=== PATIENT | female | born 1975 | race African-American/Black ===

== ENCOUNTER 2017-09-23 16:05 | Emergency (ER) | payer MEDICAID ==
[~2017-09-23] VITALS: Ht 180.3 cm; Wt 142.9 kg
[2017-09-23 16:26] VITALS: BP 149/86
[2017-09-23] MEDS ORDERED: IBUPROFEN 600 MG TAB PO ONE (19:45)
[2017-09-23] MEDS ORDERED: BACLOFEN 10 MG TAB PO ONE (19:45)
== END 2017-09-23 20:28 | disposition home or self-care (01) ==
LOC: ER 16:05
DX: S86.911A Strain of unspecified muscle(s) and tendon(s) at lower leg level, right leg, initial encounter (principal); X58.XXXA Exposure to other specified factors, initial encounter; Y93.89 Activity, other specified; Y92.89 Other specified places as the place of occurrence of the external cause; Y99.8 Other external cause status
CPT/HCPCS: 93971

== ENCOUNTER 2020-01-13 11:38 | Emergency (ER) | payer MEDICAID ==
[~2020-01-13] VITALS: Ht 152.4 cm; Wt 127.0 kg
[2020-01-13 12:41] VITALS: BP 136/82
== END 2020-01-13 12:44 | disposition home or self-care (01) ==
LOC: ER 11:38
DX: H60.92 Unspecified otitis externa, left ear (principal); I10 Essential (primary) hypertension; Z90.49 Acquired absence of other specified parts of digestive tract

== ENCOUNTER 2020-03-07 18:52 | Emergency (ER) | payer MEDICAID, OTHER ==
[~2020-03-07] VITALS: Ht 177.8 cm; Wt 113.4 kg
[2020-03-07 21:19] VITALS: BP 121/71
[2020-03-07] MEDS ORDERED: KETOROLAC TROMETH 60MG/2ML VIAL IM ONE (21:45)
== END 2020-03-07 22:16 | disposition home or self-care (01) ==
LOC: ER 18:52
DX: M54.41 Lumbago with sciatica, right side (principal); M54.16 Radiculopathy, lumbar region
CPT/HCPCS: 96372; 99283; J1885

== ENCOUNTER 2021-12-18 07:42 | Emergency (ER) | payer OTHER ==
[~2021-12-18] VITALS: Ht 177.8 cm; Wt 154.2 kg
[2021-12-18 08:10] VITALS: BP 121/79
[2021-12-18] MEDS ORDERED: KETOROLAC TROMETH 60MG/2ML VIAL IM ONE (08:15)
[2021-12-18] MEDS ORDERED: ONDANSETRON ODT 4 MG TAB PO ONE (08:15)
[2021-12-18 09:01] LABS: Urine Bacteria NONE SEEN /hpf (None Seen); Urine Blood 1+ /uL (Negative); Urine Specific Gravity 1.028 (1.001-1.035); Urine WBC 1 /hpf (0 - 5)
[2021-12-18] MEDS ORDERED: CYCL-837 PO (09:41)
[2021-12-18] MEDS ORDERED: IBUP800T27 PO (09:41)
[2021-12-18] MEDS ORDERED: ONDA-144 PO (09:41)
== END 2021-12-18 09:59 | disposition home or self-care (01) ==
LOC: ER 07:42
DX: S39.012A Strain of muscle, fascia and tendon of lower back, initial encounter (principal); I10 Essential (primary) hypertension; Z90.49 Acquired absence of other specified parts of digestive tract; Z79.1 Long term (current) use of non-steroidal anti-inflammatories (NSAID); Z79.899 Other long term (current) drug therapy; X58.XXXA Exposure to other specified factors, initial encounter; Y93.89 Activity, other specified; Y92.89 Other specified places as the place of occurrence of the external cause; Y99.8 Other external cause status
CPT/HCPCS: 72100; 81001; 96372; 99284; J1885; Q0162

== ENCOUNTER → 2022-06-02 | Emergency (ER) | payer MEDICAID, OTHER ==
[~2022-06-02] VITALS: Ht 177.8 cm; Wt 136.0 kg
[~2022-06-02] MED LIST: CYCL-837 PO; IBUP800T27 PO; ONDA-144 PO
[2022-06-02 20:37] VITALS: BP 141/71
== END | disposition left against medical advice (07) ==
LOC: ER 20:37
DX: M79.604 Pain in right leg (principal); M25.561 Pain in right knee; Z53.21 Procedure and treatment not carried out due to patient leaving prior to being seen by health care provider
CPT/HCPCS: 73562

== ENCOUNTER 2022-06-23 18:21 | Emergency (ER) | payer MEDICAID ==
[~2022-06-23] VITALS: Ht 177.8 cm; Wt 141.7 kg
[2022-06-23 18:40] VITALS: BP 143/68
[2022-06-23] MEDS ORDERED: AMOX500C2 PO (20:53)
[2022-06-23] MEDS ORDERED: LOPE-20 PO (21:50)
== END 2022-06-23 22:07 | disposition home or self-care (01) ==
LOC: ER 18:22
DX: H66.91 Otitis media, unspecified, right ear (principal); J02.0 Streptococcal pharyngitis; R19.7 Diarrhea, unspecified; Z20.822 Contact with and (suspected) exposure to COVID-19
CPT/HCPCS: 36415; 87070; 87880

== ENCOUNTER 2023-11-09 07:05 | Emergency (ER) | payer MEDICAID, OTHER ==
[~2023-11-09] VITALS: Ht 177.8 cm; Wt 150.5 kg
[~2023-11-09 07:05] MED LIST changes: +AMOX500C2 PO; +IBUP-1456 PO; -IBUP800T27 PO; +LOPE-20 PO
[2023-11-09 07:24] VITALS: BP 152/85; PULSE 75; RESP 18; O2SAT 98
[2023-11-09 07:44] LABS: Urine Bacteria FEW /hpf (None Seen); Urine Blood 1+ /uL (Negative); Urine Clarity Clear (Clear); Urine Color Yellow (Yellow); Urine Mucus FEW (None Seen); Urine Protein, UAD TRACE (Negative); Urine Specific Gravity 1.027 (1.001-1.035); Urine WBC 1 /hpf (0 - 5); Urine pH 5.5 (5.0-8.0)
[2023-11-09] MEDS ORDERED: PRED20TA2 PO (08:30)
[2023-11-09] MEDS ORDERED: CYCL-839 PO (08:30)
[2023-11-09] MEDS ORDERED: HYDR-4902 PO (08:31)
[2023-11-09] MEDS: KETOROLAC TROMETH 30 MG/ML 1ML VIAL IM ONE (08:55)
[2023-11-09] MEDS: DexAMETHasone SOD PHOS 10MG/1ML VIAL INJ IM ONE (08:55)
== END 2023-11-09 09:05 | disposition home or self-care (01) ==
LOC: ER 07:05
DX: M54.16 Radiculopathy, lumbar region (principal); M43.16 Spondylolisthesis, lumbar region; M41.86 Other forms of scoliosis, lumbar region; I10 Essential (primary) hypertension; Z90.49 Acquired absence of other specified parts of digestive tract; Z79.1 Long term (current) use of non-steroidal anti-inflammatories (NSAID); Z79.899 Other long term (current) drug therapy; Z91.013 Allergy to seafood
CPT/HCPCS: 72100; 81001; 96372; 99284; J1100; J1885

== ENCOUNTER 2024-01-13 04:26 | Emergency (ER) | payer MEDICAID ==
[~2024-01-13] VITALS: Ht 177.8 cm; Wt 147.0 kg
[~2024-01-13 04:26] MED LIST changes: +CYCL-839 PO; +HYDR-4902 PO; +PRED20TA2 PO
[2024-01-13 04:52] LABS: Basophils # (auto) 0 10 ^3/uL (0-0.2); Basophils % (auto) 1.1 % (0.0-2.0); Eosinophils # (auto) 0.2 10 ^3/uL (0-0.8); Eosinophils % (auto) 4.4 % (0.0-7.0); Hematocrit 39.4 % (36.0-46.0); Hemoglobin 12.8 g/dL (12.2-16.2); Lymphocytes # (auto) 1.6 10 ^3/uL (0.4-5.4); Mean Corpuscular Hemoglobin 28.1 pg (28.0-32.0); Mean Corpuscular Hgb Conc. 32.5 g/dL (32.0-36.0); Mean Corpuscular Volume 86.6 fL (80.0-100.0); Monocytes # (auto) 0.3 10 ^3/uL (0-1.3); Monocytes % (auto) 6.7 % (0.0-12.0); Neutrophils # (auto) 1.9 10 ^3/uL (1.6-8.6); Neutrophils % (auto) 46.8 % (37.0-80.0); Nucleated Red Blood Cells % 0.2 %; Red Blood Cells 4.54 10^6/uL (4.0-5.20); Red Cell Distribution Width 14.9 % (11.8-14.3)
[2024-01-13 05:09] LABS: Alanine Aminotransferase 28 U/L (7-40); Albumin 4.3 g/dL (3.2-4.8); Alkaline Phosphatase 98 U/L (46-116); Anion Gap 9 (5-15); Aspartate Aminotransferase 27 U/L (13-40); BUN/Creatinine Ratio 6.5 (10.0-20.0); Blood Urea Nitrogen 6 mg/dL (9-23); Calcium 9.3 mg/dL (8.7-10.4); Carbon Dioxide 24 mmol/L (20-30); Chloride 103 mmol/L (98-107); Glucose 105 mg/dL (74-106); Potassium 3.3 mmol/L (3.5-5.1); Sodium 136 mmol/L (136-145)
[2024-01-13 05:10] LABS: Bilirubin, Total 0.6 mg/dL (0.2-1.0); Total Protein 7.1 g/dL (5.7-8.2)
[2024-01-13] MEDS ORDERED: DICL50TA2 PO (07:18)
[2024-01-13] MEDS ORDERED: ATEN-60 PO (07:18)
[2024-01-13 07:57] VITALS: PULSE 80
[2024-01-13] MEDS: KETOROLAC TROMETH 60MG/2ML VIAL IM ONE (07:57)
[2024-01-13] MEDS: POTASSIUM EFFERVESENT TAB 25 MEQ PO ONE (07:57)
[2024-01-13 08:07] VITALS: BP 140/94; PULSE 74; RESP 14; TEMP 98.8; O2SAT 99
== END 2024-01-13 08:31 | disposition home or self-care (01) ==
LOC: ER 04:26
DX: R07.89 Other chest pain (principal); I10 Essential (primary) hypertension; K21.9 Gastro-esophageal reflux disease without esophagitis; E66.01 Morbid (severe) obesity due to excess calories; Z91.013 Allergy to seafood; Z91.014 Allergy to mammalian meats; Z68.42 Body mass index [BMI] 45.0-49.9, adult
CPT/HCPCS: 36415; 71045; 80053; 84484; 85025; 93005; 96372; 99285; J1885

== ENCOUNTER 2025-04-19 14:35 | Emergency (ER) | payer MEDICAID, OTHER ==
[~2025-04-19] VITALS: Ht 172.7 cm; Wt 150.0 kg
[~2025-04-19 14:35] MED LIST changes: +ATEN-60 PO; +DICL50TA2 PO
[2025-04-19 15:42] LABS: Hematocrit 40.8 % (36.0-46.0); Hemoglobin 13.8 g/dL (12.2-16.2); Mean Corpuscular Hemoglobin 28.9 pg (28.0-32.0); Mean Corpuscular Volume 85.6 fL (80.0-100.0); Nucleated Red Blood Cells % 0.1 %
[2025-04-19 15:51] LABS: Potassium 4.3 mmol/L (3.5-5.1)
[2025-04-19 15:52] LABS: Anion Gap 9 (5-15); Carbon Dioxide 30 mmol/L (20-31)
[2025-04-19 15:53] LABS: Calcium 9.0 mg/dL (8.7-10.4)
[2025-04-19 15:57] LABS: BUN/Creatinine Ratio 12.9 (10.0-20.0); Blood Urea Nitrogen 13 mg/dL (9-23); Chloride 107 mmol/L (98-107); Glucose 96 mg/dL (74-106); Sodium 146 mmol/L (136-145)
[2025-04-19] MEDS: HYDROcodone-ACET 5/325MG TAB PO ONE (16:43)
[2025-04-19] MEDS: KETOROLAC TROMETH 60MG/2ML VIAL IM ONE (16:44)
--- NOTE | 2025-04-19 16:45 | ED.PDOC ---
Back pain HPI HPI Comments 49-year-old female presents to the ER with a prior MHx of colonic back pain and a chief complaint of back pain. Patient Reports ongoing to her PCP today, but her PCP left for the day. Patient states that the back pain started yesterday and today and is radiating down the her posterior leg. Relays a hx of chx back pain, similar symptoms and L4 and L5 are pushing into the nerves. Pain rated moderate at this time. Denies history of chronic steroid use or history of osteoporosis Denies history of cancer Denies fevers chills night sweats nausea vomiting unintentional weight loss Denies abdominal tearing pain Denies syncope Denies urinary changes or urinary incontinence Denies numbness tingling of the groin her inner thigh Denies previous back procedures or surgeries Chief Complaint: Back Pain Time Seen by MD: 15:00 Primary Care Provider: DR. RODRIGUEZ Reviewed Notes: Nurses Notes, Medications, Allergies Allergies: Coded Allergies: Shellfish Allergy (Verified Allergy, Unknown, 11/09/23) Home Meds Active Scripts Methocarbamol (Methocarbamol) 500 Mg Tab, 500 MG PO Q8HP PRN for 10 Days, #30 TAB 0 Refills Prov:KRISTINE PHAN NP 04/19/25 Tramadol HCl (Tramadol HCl) 50 Mg Tab, 50 MG PO Q8HP PRN for 7 Days, #21 TAB 0 Refills Prov:KRISTINE PHAN NP 04/19/25 Methylprednisolone (Medrol Dosepak) 4 Mg Nacho, 4 MG PO UD for 7 Days, #21 TAB 0 Refills UAD Prov:KRISTINE PHAN NP 04/19/25 Atenolol (Atenolol) 25 Mg Tab, 1 TAB PO bed time for 30 Days, #30 TAB 5 Refills Prov:TONYA PEREZ MD 01/13/24 Diclofenac Potassium (Diclofenac Potassium) 50 Mg Tab, 1 TAB PO TIDP for 5 Days, #15 TAB Prov:TONYA PEREZ MD 01/13/24 Hydrocodone-Acetaminophen (Hydrocodone Bitartrate/AC 5-325 mg) 1 Tab Tab, 1 TAB PO Q6HPRN PRN, #12 TAB Prov:CAROLYNN COX 11/09/23 Cyclobenzaprine Hcl (Cyclobenzaprine Hcl) 10 Mg Tab, 10 MG PO TID PRN, #15 TAB Prov:CAROLYNN COX [employer] 11/09/23 Prednisone (Prednisone) 20 Mg Tab, 60 MG PO DAILY for 5 Days, #15 MG Prov:CAROLYNN COX [employer]ERSON 11/09/23 Loperamide Hcl ([facility] ANTI-DIARRHEAL) 2 Mg Cap, 2 MG PO DAILY PRN for 5 Days, #5 CAP Prov:SUSAN PETER [employer]ERSON 06/23/22 Amoxicillin Trihydrate (Amoxicillin) 500 Mg Cap, 1 CAP PO BID for 10 Days, #20 CAP Prov:SUSAN PETER [employer] 06/23/22 Ondansetron (Zofran) 4 Mg Tab, 1 TAB PO Q8HPRN, #14 TAB 0 Refills Prov:MYRA WITT 12/18/21 Ibuprofen (Ibuprofen) 800 Mg Tab, 1 TAB PO TID PRN, #30 TAB 0 Refills Prov:MYRA WITT 12/18/21 Cyclobenzaprine Hcl (Cyclobenzaprine Hcl) 5 Mg Tab, 1 TAB PO QPM, #14 TAB 0 Refills Prov:MYRA WITT 12/18/21 Information Source: Patient Mode of Arrival: Ambulatory Timing: Hours Duration: Since onset, Hours Location of Back pain: (B) Lumbar (L4 and L5) Severity: Moderate Prehospital treatment: None Quality: Aching Onset: Spontaneous History of: Chronic Back Pain Associated signs and symptoms: None Past Medical History Past Medical History (Other): Chronic Back pain Surgical History: Unknown HR MANAGER History: No Pertinent HR MANAGER History Family History Family History: Reviewed,noncontributory to illness, Unknown Social History Smoker: Non-Smoker Alcohol: Denies ETOH Use Drugs: Denies Drug Use Lives In: Home Constitutional: denies: chills, diaphoresis, fatigue, fever, malaise, sweats, weakness, others EENTM: denies: blurred vision, double vision, ear bleeding, ear discharge, ear drainage, ear pain, ear ringing, eye pain, eye redness, hearing loss, mouth pain, mouth swelling, nasal discharge, nose bleeding, nose congestion, nose pain, photophobia, tearing, throat pain, throat swelling, voice changes, others Respiratory: denies: cough, hemoptysis, orthopnea, SOB at rest, shortness of breath, SOB with excertion, stridor, wheezing, others Cardiovascular: denies: chest pain, dizzy spells, diaphoresis, Dyspnea on exertion, edema, irregular heart beat, left arm pain, lightheadedness, palpitations, PND, syncope, others Gastrointestinal: denies: abdomen distended, abdominal pain, blood streaked bowels, constipated, diarrhea, dysphagia, difficulty swallowing, hematemesis, melena, nausea, poor appetite, poor fluid intake, rectal bleeding, rectal pain, vomiting, others Genitourinary: denies: abnormal vagina bleeding, burning, dyspareunia, dysuria, flank pain, frequency, hematuria, incontinence, pain, , vagina discharge, urgency, others Neurological: denies: dizziness, fainting, headache, left sided numbness, left sided weakness, numbness, paresthesia, pre-existing deficit, right sided numbness, right sided weakness, seizure, speech problems, tingling, tremors, weakness, others Musculoskeletal: reports: back pain; denies: gout, joint pain, joint swelling, muscle pain, muscle stiffness, neck pain, others Integumetry: denies: bruises, change in color, change in hair/nails, dryness, laceration, lesions, lumps, rash, wounds, others Allergic/Immunocompromised: denies: Difficulty Healing, Frequent Infections, Hives, Itching, others Hematologic/Lymphatic: denies: anemia, blood clots, easy bleeding, easy bruising, swollen glands, others Endocrine: denies: excessive hunger, excessive sweating, excessive thirst, excessive urination, flushing, intolerance to cold, intolerance to heat, unexplained weight gain, unexplained weight loss, others Psychiatric: denies: anxiety, bipolar disorder, depression, hopeless, panic disorder, schizophrenia, sleepless, suicidal, others All Other Systems: Reviewed and Negative Physical Exam General Appearance: No Apparent Distress, Normal HEENT: Normal ENT Inspection, Pharynx Normal, TMs Normal Neck: Full Range of Motion, Non-Tender, Normal, Normal Inspection Respiratory: Chest Non-Tender, Lungs Clear, No Accessory Muscle Use, No Respiratory Distress, Normal Breath Sounds Cardiovascular: No Murmur, No Gallop, Regular Rate/Rhythm Breast Exam: Deferred Gastrointestinal: No Organomegaly, Non Tender, No Pulsatile Mass, Normal Bowel Sounds, Soft Genitalia: Deferred Pelvic: Deferred Rectal: Deferred Extremities: No calf tenderness, Normal capillary refill, Normal inspection, Normal range of motion, Non-tender, No pedal edema Musculoskeletal : Location: Bilateral Extremity Location: Other (Back pain) Apperance: Normal Neurologic: Alert, oven tender bagels II-XII nml as Tested, No Motor Deficits, Normal Affect, Normal Mood, No Sensory Deficits Cerebellar Function: Normal Reflexes: Normal Skin: Dry, Normal Color, Warm Lymphatic: No Adenopathy Was a procedure done? Was a procedure done?: No Back Pain Differential Dx Differential Diagnosis: Musculoskeletal Pain, Strain, Other X-Ray, Labs, Meds, VS Vital Signs Date Time Temp Pulse Resp B/P (MAP) Pulse Ox O2 Delivery O2 Flow Rate FiO2 04/19/25 16:46 98.3 96 18 132/83 (99) 96 98.3 04/19/25 16:46 85 18 96 Room Air 04/19/25 16:33 98.3 85 18 132/83 (99) 96 98.3 04/19/25 15:29 90 04/19/25 14:36 98.1 74 16 114/64 97 98.1 Lab Test 04/19/25 16:30 04/19/25 15:29 Range/Units Urine Color Yellow Yellow Urine Clarity Clear Clear Urine pH 6.0 5.0-9.0 Urine Specific [place] 1.025 1.001-1.035 Urine Protein Negative Negative Urine Ketones Negative Negative Urine Blood Negative Negative /uL Urine Nitrite Negative Negative Urine Bilirubin Negative Negative Urine Urobilinogen 3 H Negative mg/dL Urine Leukocyte Esterase Negative Negative /uL Urine RBC 1 0 - 4 /hpf Urine Microscopic WBC 1 0-5 /HPF Urine Squamous Epithelial Cells Few <5 /hpf Urine Bacteria None seen None Seen /hpf Urine Mucus Few None Seen Urine Glucose Normal Normal mg/dL White Blood Count 5.6 4.4-10.8 10^3/uL Red Blood Count 4.77 4.0-5.20 10^6/uL Hemoglobin 13.8 12.2-16.2 g/dL Hematocrit 40.8 36.0-46.0 % Mean Corpuscular Volume 85.6 80.0-100.0 fL Mean Corpuscular Hemoglobin 28.9 28.0-32.0 pg Mean Corpuscular Hemoglobin Concent 33.7 32.0-36.0 g/dL Red Cell Distribution Width 14.5 H 11.8-14.3 % Platelet Count 285 140-450 10^3/uL Mean Platelet Volume 9.0 6.9-10.8 fL Neutrophils (%) (Auto) 52.2 37.0-80.0 % Lymphocytes (%) (Auto) 35.9 10.0-50.0 % Monocytes (%) (Auto) 4.8 0.0-12.0 % Eosinophils (%) (Auto) 4.8 0.0-7.0 % Basophils (%) (Auto) 2.3 H 0.0-2.0 % Neutrophils # (Auto) 2.9 1.6-8.6 10 ^3/uL Lymphocytes # (Auto) 2.0 0.4-5.4 10 ^3/uL Monocytes # (Auto) 0.3 0-1.3 10 ^3/uL Eosinophils # (Auto) 0.3 0-0.8 10 ^3/uL Basophils # (Auto) 0.1 0-0.2 10 ^3/uL Nucleated Red Blood Cells 0.1 % Sodium Level 146 H 136-145 mmol/L Potassium Level 4.3 3.5-5.1 mmol/L Chloride Level 107 98-107 mmol/L Carbon Dioxide Level 30 20-31 mmol/L Anion Gap 9 5-15 Blood Urea Nitrogen 13 9-23 mg/dL Creatinine 1.01 0.550-1.02 mg/dL Glomerular Filtration Rate Calc 68 >90 mL/min BUN/Creatinine Ratio 12.9 10.0-20.0 Serum Glucose 96 74-106 mg/dL Calcium Level 9.0 8.7-10.4 mg/dL Current Medications Medications (Trade) Dose Ordered Sig/Salome Route Start Time Stop Time Status Last Admin Acetaminophen/ Hydrocodone Bitart ([place] 5/325MG Tab) 1 tab ONCE ONCE PO 04/19/25 15:15 04/19/25 15:17 DC 04/19/25 16:43 Ketorolac Tromethamine (Toradol Injection) 60 mg ONCE ONCE IM 04/19/25 15:15 04/19/25 15:17 DC 04/19/25 16:44 X-Ray, Labs, Meds, VS Comment 49-year-old female presents to the ER with a prior MHx of colonic back pain and a chief complaint of back pain. Patient arrives alert and oriented, ABC's intact, afebrile, vital signs stable, saturating well in room air Peripheral IV insertion+ labs were ordered. CBC was ordered to exclude anemia, blood loss, or infection. BMP was ordered to exclude electrolyte abnormalities, renal failure, dehydration, hyperglycemia Urinalysis was ordered to rule out UTI or hematuria. Presentation most consistent with nonemergent musculoskeletal etiology versus nonemergent disc herniation. Disposition: Discharge. Strict return precautions discussed with the patient with full understanding. Supportive care advised (rest, ice, heat, NSAIDs, stretching exercises) Massage muscles with cold pack or ice for 20 minutes 4 times per day. Usually most useful if there is swelling during the first 48 hours Heating pad on the most painful area for 20 minutes to relieve muscle spasm Sleep and the most comfortable sleeping position (usually on the side with knees bent) Light stretching, no strenuous activity, avoid frequent bending, avoid carrying heavy objects Discussed possible benefits of yoga and acupuncture On reevaluation, patient had symptomatic improvement. Patient is stable for discharge at this time. External notes reviewed. Test results and diagnostic imaging interpreted. All diagnostic findings, discharge care, education and instructions provided Follow-up with PCP in 2 to 3 days Patient verbalized understanding and agreed to treatment plan Vital signs stable, afebrile, no acute distress noted Patient ambulatory with strong steady gait Advised to return precautions for any new or worsening symptoms, return to ER immediately for re-evaluation Patient is aware that the purpose of this visit was for an acute medical emergency requiring emergent stabilization. Chronic conditions, including malignancies have not been ruled out. Patient is instructed to follow up with PCP as directed and discharge instructions for continued care and workup. If unable to arrange follow-up, patient is to return to the emergency department for reassessment. Patient (parent or legal guardian if applicable) was given verbal and written discharge instructions and acknowledges understanding. Additional MDM Review of External, Non-ED records: External records reviewed. Discussion with independent historian (EMS, family) history obtained from the patient/parents (if applicable) at bedside Chronic conditions affecting care: None Social determinants of health affecting care: None Consideration of admission (observation or admission): I considered escalation of care to admission for this patient, however given the reassuring workup, the patient is safe for outpatient management. Time of 1ST Reevaluation: 15:30 Reevaluation 1ST: Unchanged Time of 2ND Reevaluation: 17:00 Reevaluation 2ND: Improved Patient Education/Counseling: Diagnosis, Treatment, Prognosis Family Education/Counseling: No Family Present SEPSIS Sepsis Screen Date sepsis recognized/suspect: Apr 19, 2025 Time Sepsis recognized/suspect: 1437 Recent Procedure: No On Antibiotic Therapy: No Respiratory Rate >20: No Heart Rate >90: No Temp<36 C (96.8 F) or >38.3 C: No SBP <90 or MAP <65 mmHG: No New Acute Mental Status Change: No Is the patient on CPAP, BIPAP,: No Physician Orders Electrocardigram (04/19/25 16:01) Vital Signs Date Time Temp Pulse Resp B/P (MAP) Pulse Ox O2 Delivery O2 Flow Rate FiO2 04/19/25 16:46 98.3 96 18 132/83 (99) 96 98.3 04/19/25 16:46 85 18 96 Room Air 04/19/25 16:33 98.3 85 18 132/83 (99) 96 98.3 04/19/25 15:29 90 04/19/25 14:36 98.1 74 16 114/64 97 98.1 Laboratory Tests Test 04/19/25 15:29 White Blood Count 5.6 10^3/uL (4.4-10.8) Departure 1 Departure Time of Disposition: 17:28 Impression: Primary Impression: Back pain Qualified Codes: M54.42 - Lumbago with sciatica, left side Disposition: HOME / SELF CARE / HOMELESS Condition: Fair e-Prescriptions Methocarbamol (Methocarbamol) 500 Mg Tab 500 MG PO Q8HP PRN for 10 Days, #30 TAB 0 Refills Prov: KRISTINE PHAN NP 04/19/25 Tramadol HCl (Tramadol HCl) 50 Mg Tab 50 MG PO Q8HP PRN for 7 Days, #21 TAB 0 Refills Prov: KRISTINE PHAN NP 04/19/25 Methylprednisolone (Medrol Dosepak) 4 Mg Nacho 4 MG PO UD for 7 Days, #21 TAB 0 Refills UAD Prov: KRISTINE PHAN NP 04/19/25 Discharged With: Self Critical Care Note Critical Care Time?: No Stability Stability form required: No Heart Score Heart Score: Heart Score Response (Comments) Value History N/A 0 EKG N/A 0 Age N/A 0 Risk Factors N/A 0 Troponin N/A 0 Total 0 I personally scribed for KRISTINE PHAN NP ([email or web address]) on 04/19/25 at 16:45. Electronically submitted by Ray Trevizo ([email or web address]). KRISTINE PHAN NP Apr 19, 2025 16:45
[2025-04-19 16:46] VITALS: BP 132/83; PULSE 85; RESP 18; TEMP 98.3; O2SAT 96
[2025-04-19 17:25] LABS: Urine Protein, UAD Negative (Negative)
[2025-04-19] MEDS ORDERED: METH-1181 PO (17:41)
[2025-04-19] MEDS ORDERED: TRAM-626 PO (17:41)
[2025-04-19] MEDS ORDERED: METH4PAK PO (17:41)
--- NOTE | 2025-04-21 13:22 | ECG ---
[facility] Test Date: 2025-04-19 Test Time: 15:29:29 Pat Name: KARYN INGRIS Department: ED Room: Gender: F [place]: ARSALAN : 1975 Requested By: KRISTINE PHAN Order Number: [id number] Reading MD: Measurements Intervals [place] Rate: 90 P: 95 MD: 141 QRS: 79 QRSD: 88 T: 59 QT: 382 QTc: 468 Interpretive Statements Sinus rhythm Biatrial enlargement Probable left ventricular hypertrophy Baseline wander in lead(s) I,II,III,aVR,aVL,aVF,V1,V2,V3,V4,V5,V6 Please click the below link to view image of tracing.
== END 2025-04-19 17:51 | disposition home or self-care (01) ==
LOC: ER 14:35 → EDUNIT# 14:35 → ER 17:51
DX: M54.50 Low back pain, unspecified (principal); Z79.52 Long term (current) use of systemic steroids; Z79.899 Other long term (current) drug therapy; Z91.013 Allergy to seafood
CPT/HCPCS: 36415; 80048; 81001; 85025; 93005; 96372; 99284; J1885